=== PATIENT | female | born 2000 | race Caucasian/White ===

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

== ENCOUNTER 2020-08-02 07:14 | Emergency (ER) | payer BC, SELFPAY ==
[2020-08-02] MEDS ORDERED: Azithromycin 250 MG TAB ONE (08:48)
[2020-08-02] MEDS ORDERED: cefTRIAXone\\ROCEPHIN 500 MG VIAL ONE (08:48)
[2020-08-02 08:59] LABS: Bilirubin Negative (Negative); Blood, Urine Negative (Negative); Glucose, Urine (Dipstick) Negative (Negative); Ketone, Urine Negative (Negative); Leukocyte Negative (Negative); Nitrite Negative (Negative); Protein, Urine (Dipstick) Negative (Neg-Trace); Specific Gravity, Urine 1.025 (1.005-1.030); Urobilinogen 0.2 mg/dL (Less than 2); pH, Urine 6.5 (5.0-9.0)
[2020-08-02 09:00] LABS: Clarity Clear (Clear)
[2020-08-02 09:01] LABS: Pregnancy Test - Urine (BHCG) Negative (Negative); Pregu Control Background? CLEAR/WHITE (CLR/WHITE); Pregu Control Bar Appear? YES (CONTROL BAR); Specific Gravity 1.025 (1.002-1.036)
[2020-08-02 21:20] LABS: Chlam.trachomatis by PCR,Urine Not Detected (NotDetected)
== END 2020-08-02 09:37 | disposition home or self-care (01) ==
LOC: ERS 07:14
DX: R30.0 Dysuria (principal)
CPT/HCPCS: 81003; 81025; 87491; 87591; 96372; 99283; J0696

== ENCOUNTER 2020-12-04 10:27 | Emergency (ER) | payer SELFPAY ==
[2020-12-04] MEDS ORDERED: Lidocaine 1% PF 5 ML VIAL ONE (11:06)
[2020-12-04] MEDS ORDERED: cefTRIAXone\\ROCEPHIN 500 MG VIAL ONE (11:06)
[2020-12-04 11:24] LABS: Bilirubin Negative (Negative); Blood, Urine Negative (Negative); Glucose, Urine (Dipstick) Negative (Negative); Ketone, Urine Negative (Negative); Leukocyte Negative (Negative); Nitrite Negative (Negative); Protein, Urine (Dipstick) Negative (Neg-Trace); Urobilinogen 0.2 mg/dL (Less than 2)
[2020-12-04 11:25] LABS: Clarity Clear (Clear)
[2020-12-04 11:27] LABS: Bacteria/HPF None Seen HPF (None Seen); RBC/HPF 0-3 HPF (0-3); WBC/HPF 0-3 HPF (0-3)
[2020-12-04 11:31] LABS: Pregnancy Test - Urine (BHCG) Negative (Negative); Pregu Control Background? CLEAR/WHITE (CLR/WHITE); Pregu Control Bar Appear? YES (CONTROL BAR)
[2020-12-06 21:39] LABS: Chlam.trachomatis by PCR,Urine Not Detected (NotDetected)
== END 2020-12-04 11:39 | disposition home or self-care (01) ==
LOC: ERS 10:27
DX: A64 Unspecified sexually transmitted disease (principal); Z87.891 Personal history of nicotine dependence
CPT/HCPCS: 81003; 81025; 87491; 87591; 96372; 99283; J0696

== ENCOUNTER 2023-05-01 18:44 | Emergency (ER) | payer SELFPAY | END 2023-05-01 19:49 | disposition home or self-care (01) | LOC: ERS 18:44 | DX: B34.9 Viral infection, unspecified (principal); Z87.891 Personal history of nicotine dependence | CPT/HCPCS: 99283 ==

== ENCOUNTER 2023-06-09 05:09 | Emergency (ER) | payer SELFPAY ==
[2023-06-09] MEDS ORDERED: Acetaminophen 500 MG TAB ONE (05:25)
[2023-06-09 06:22] LABS: SARS-CoV-2 NAA Rapid Test Not Detected (NotDetected)
== END 2023-06-09 06:37 | disposition home or self-care (01) ==
LOC: ERS 05:09
DX: J10.1 Influenza due to other identified influenza virus with other respiratory manifestations (principal); Z20.822 Contact with and (suspected) exposure to COVID-19; Z87.891 Personal history of nicotine dependence
CPT/HCPCS: 99283